=== PATIENT | female | born 1980 | race American Indian/Alaskan Native ===

== ENCOUNTER 2017-06-25 18:19 | Outpatient (CLI) | payer OTHER | END 2017-06-25 20:34 | disposition home or self-care (01) | LOC: OBS/DEL 18:19 → NST 18:19 → LDR 18:24 → OBS/DEL 20:34 | DX: O30.002 Twin pregnancy, unspecified number of placenta and unspecified number of amniotic sacs, second trimester (principal); Z34.82 Encounter for supervision of other normal pregnancy, second trimester ==

== ENCOUNTER 2017-07-04 12:02 | Outpatient (CLI) | payer OTHER | END 2017-07-04 13:06 | disposition home or self-care (01) | LOC: NST 12:02 | DX: Z34.02 Encounter for supervision of normal first pregnancy, second trimester (principal) ==

== ENCOUNTER 2017-07-15 10:27 | Outpatient (CLI) | payer OTHER ==
[2017-07-16] MEDS ORDERED: PRENATAL 19 TA1 EAC1 (10:12)
[2017-07-16] MEDS ORDERED: TYLENOL EXTRA500 MG (10:13)
== END 2017-07-15 11:00 | disposition home or self-care (01) ==
LOC: NUCLEAR 10:27
DX: I87.2 Venous insufficiency (chronic) (peripheral) (principal)

== ENCOUNTER 2017-07-15 13:32 | Inpatient (IN) | payer OTHER ==
[~2017-07-15] VITALS: Ht 165.1 cm; Wt 75.7 kg
[2017-07-16] MEDS ORDERED: PRENATAL 19 TA1 EAC1 (10:12)
[2017-07-16] MEDS ORDERED: TYLENOL EXTRA500 MG (10:13)
== END 2017-07-26 13:01 | disposition home or self-care (01) | DRG 781 ==
LOC: OB/GYN 13:32
PROC: B54CZZZ Ultrasonography of Left Lower Extremity Veins (ICD-10-PCS; principal; 2017-07-22)
PROC: BY4DZZZ Ultrasonography of Second Trimester, Multiple Gestation (ICD-10-PCS; 2017-07-22)
PROC: 4A1HXCZ Monitoring of Products of Conception, Cardiac Rate, External Approach (ICD-10-PCS; 2017-07-22)
DX: O22.32 Deep phlebothrombosis in pregnancy, second trimester (principal); O99.012 Anemia complicating pregnancy, second trimester; I82.492 Acute embolism and thrombosis of other specified deep vein of left lower extremity; O99.112 Other diseases of the blood and blood-forming organs and certain disorders involving the immune mechanism complicating pregnancy, second trimester; D68.59 Other primary thrombophilia; E72.12 Methylenetetrahydrofolate reductase deficiency; O99.282 Endocrine, nutritional and metabolic diseases complicating pregnancy, second trimester

== ENCOUNTER 2017-08-07 15:05 | Outpatient (CLI) | payer OTHER ==
[~2017-08-07 15:05] MED LIST: PRENATAL 19 TA1 EAC1; TYLENOL EXTRA500 MG
== END 2017-08-07 16:53 | disposition home or self-care (01) ==
LOC: NST 15:05
DX: O30.093 Twin pregnancy, unable to determine number of placenta and number of amniotic sacs, third trimester (principal); Z34.83 Encounter for supervision of other normal pregnancy, third trimester

== ENCOUNTER 2017-08-20 09:28 | Outpatient (CLI) | payer OTHER | END 2017-08-20 10:13 | disposition home or self-care (01) | LOC: NST 09:28 | DX: O30.003 Twin pregnancy, unspecified number of placenta and unspecified number of amniotic sacs, third trimester (principal); Z34.83 Encounter for supervision of other normal pregnancy, third trimester ==

== ENCOUNTER 2017-09-05 08:53 | Outpatient (CLI) | payer OTHER | END 2017-09-05 09:53 | disposition home or self-care (01) | LOC: NST 08:53 | DX: O30.003 Twin pregnancy, unspecified number of placenta and unspecified number of amniotic sacs, third trimester (principal); Z34.83 Encounter for supervision of other normal pregnancy, third trimester ==

== ENCOUNTER 2017-09-11 08:29 | Outpatient (CLI) | payer OTHER | END 2017-09-11 09:11 | disposition home or self-care (01) | LOC: NUCLEAR 08:29 | DX: I82.492 Acute embolism and thrombosis of other specified deep vein of left lower extremity (principal); D68.59 Other primary thrombophilia ==

== ENCOUNTER 2017-09-11 12:03 | Inpatient (IN) | payer OTHER ==
[~2017-09-11] VITALS: Ht 165.1 cm; Wt 2.3 kg
[2017-10-02] MEDS ORDERED: LOVENOX30 MG/0.3 (08:10)
[2017-10-02] MEDS ORDERED: IRON325 MG PO (08:18)
[2017-10-02] MEDS ORDERED: INTEGRA F CAPS1 EACH PO (08:19)
== END 2017-10-04 14:47 | disposition home or self-care (01) | DRG 775 ==
LOC: SURG-SUITE 10-02 06:46 → LDR 10-02 06:46 → SURG-SUITE 10-02 15:23 → LDR 10-18 12:02
PROC: 10E0XZZ Delivery of Products of Conception, External Approach (ICD-10-PCS; principal; 2017-10-02)
PROC: 0UQGXZZ Repair Vagina, External Approach (ICD-10-PCS; 2017-10-02)
PROC: 10907ZC Drainage of Amniotic Fluid, Therapeutic from Products of Conception, Via Natural or Artificial Opening (ICD-10-PCS; 2017-10-02)
PROC: 4A1HXCZ Monitoring of Products of Conception, Cardiac Rate, External Approach (ICD-10-PCS; 2017-10-02)
DX: O30.043 Twin pregnancy, dichorionic/diamniotic, third trimester (principal); O71.4 Obstetric high vaginal laceration alone; O99.824 Streptococcus B carrier state complicating childbirth; Z3A.37 37 weeks gestation of pregnancy; Z37.2 Twins, both liveborn

== ENCOUNTER 2017-11-13 09:28 | Outpatient (CLI) | payer OTHER ==
[~2017-11-13 09:28] MED LIST changes: +INTEGRA F CAPS1 EACH PO; +IRON325 MG PO; +LOVENOX30 MG/0.3
== END 2017-11-13 10:30 | disposition home or self-care (01) ==
LOC: NUCLEAR 09:28
DX: I82.402 Acute embolism and thrombosis of unspecified deep veins of left lower extremity (principal)

== ENCOUNTER 2019-10-06 09:35 | Outpatient (CLI) | payer OTHER | END 2019-10-06 09:56 | disposition home or self-care (01) | LOC: NUCLEAR 09:35 | PROVIDERS: ATTEND Internal Medicine Hematology & Oncology | DX: I87.2 Venous insufficiency (chronic) (peripheral) (principal); Z86.718 Personal history of other venous thrombosis and embolism ==

== ENCOUNTER 2020-05-20 11:59 | Outpatient (CLI) | payer OTHER | END 2020-05-20 12:39 | disposition home or self-care (01) | LOC: LAB 11:59 | PROVIDERS: ATTEND Internal Medicine Hematology & Oncology | DX: R07.89 Other chest pain (principal) ==

== ENCOUNTER 2020-11-18 09:35 | Outpatient (CLI) | payer OTHER | END 2020-11-18 09:38 | disposition home or self-care (01) | LOC: NUCLEAR 09:35 | PROVIDERS: ATTEND Internal Medicine Hematology & Oncology | DX: I87.2 Venous insufficiency (chronic) (peripheral) (principal) ==

== ENCOUNTER → 2021-10-13 | Outpatient (CLI) | payer OTHER | END | disposition home or self-care (01) | LOC: NUCLEAR 10-11 07:30 | PROVIDERS: ATTEND Internal Medicine Hematology & Oncology | DX: I87.2 Venous insufficiency (chronic) (peripheral) (principal); Z86.718 Personal history of other venous thrombosis and embolism; Z88.5 Allergy status to narcotic agent; Z88.6 Allergy status to analgesic agent; Z91.040 Latex allergy status ==

== ENCOUNTER 2022-05-17 10:43 | Outpatient (CLI) | payer OTHER | END 2022-05-17 11:25 | disposition home or self-care (01) | LOC: RAD 10:43 | DX: M99.01 Segmental and somatic dysfunction of cervical region (principal); M99.02 Segmental and somatic dysfunction of thoracic region; M99.03 Segmental and somatic dysfunction of lumbar region; M99.04 Segmental and somatic dysfunction of sacral region; M99.05 Segmental and somatic dysfunction of pelvic region ==

== ENCOUNTER 2022-12-07 08:32 | Outpatient (CLI) | payer OTHER | END 2022-12-07 08:40 | disposition home or self-care (01) | LOC: NUCLEAR 08:32 | PROVIDERS: ATTEND Internal Medicine Hematology & Oncology | DX: I87.2 Venous insufficiency (chronic) (peripheral) (principal) ==